=== PATIENT | female | born 2000 | race Two or more races ===

== ENCOUNTER 2024-10-17 19:12 | Emergency (ER) | payer MEDICAID, SELFPAY ==
[2024-10-17 19:12] VITALS: BMI 33.2
--- NOTE | 2024-10-17 19:15 | EKG_ITS ---
[facility] Test Date: 2024-10-17 Pat Name: PIERRE BRUCE Department: Room: - Gender: Female Mobile Phone Salesperson: : [id number] Requested By: Yamil Loza Order Number: [id number] Reading MD: Yamil Loza Measurements Intervals [place] Rate: 88 P: 51 UT: 132 QRS: 51 QRSD: 100 T: 31 QT: 356 QTc: 431 Interpretive Statements SINUS RHYTHM INDETERMINATE AXIS ATYPICAL ECG No previous ECG available for comparison /store/S0/[id number].pdf
[2024-10-17 19:24] VITALS: BP 146/92; PULSE 94; RESP 18; TEMP 36.9; O2SAT 99
--- NOTE | 2024-10-17 19:38 | PD.EDRME ---
Rapid Medical Screening Exam [facility] Arrival date/time: 10/17/24 19:12 24F with history of SHELBI 2/2 to heavy menstrual cycles presents to ED with 2 days of weakness and dizziness. Patient tried iron supplements but they hurt her stomach so she switched to the gummy version. Patient's current cycle has been going on for about 1 month. Chief Complaint: Dizziness Time Seen by Provider: 10/17/24 23:33 Vital signs: Vital Signs Temperature 98.4 F 10/17/24 19:24 Pulse Rate 94 10/17/24 19:24 Respiratory Rate 18 10/17/24 19:24 Blood Pressure 146/92 H 10/17/24 19:24 Pulse Oximetry (%) 99 10/17/24 19:24 Oxygen Delivery Method Room Air 10/17/24 19:24
[2024-10-17 20:16] LABS: Basophils # (Auto) 0.1 Thou/mm3 (0.0-0.2); Basophils % (Auto) 1 % (0-2.5); Eosinophils # (Auto) 0.1 Thou/mm3 (0.0-0.5); Eosinophils % (Auto) 1 % (0-10); Hematocrit 35.2 % (36.0-46.0); Hemoglobin 10.9 g/dL (12.0-16.0); Immature Granulocytes % (Auto) 1 % (0-0); Immature Granulocytes Auto 0.08 Thou/mm3 (0.00-0.00); Lymphocytes # (Auto) 3.2 Thou/mm3 (1.0-4.8); Lymphocytes % (Auto) 25 % (10-50); Mean Corpuscular Hemoglobin 23.8 pg (25.0-35.0); Mean Corpuscular Volume 77 fL (80-100); Monocytes # (Auto) 0.8 Thou/mm3 (0.0-0.8); Monocytes % (Auto) 6 % (0-12); Neutrophils # (Auto) 8.5 Thou/mm3 (1.8-7.7); Neutrophils % (Auto) 67 % (37-80); Nucleated Red Blood Cell % 0 /100 WBC (0); Platelet Count 531 Thou/mm3 (140-440); Red Blood Count 4.58 Miln/mm3 (4.00-5.20); White Blood Count 12.7 Thou/mm3 (3.6-11.0)
[2024-10-17 20:36] LABS: Alanine Aminotransferase 11 U/L (10-49); Albumin, Serum 4.8 gm/dL (3.5-5.0); Albumin/Globulin Ratio 1.5 (1.2-2.2); Alkaline Phosphatase 82 U/L (46-116); Anion Gap 5 (7-16); Aspartate Amino Transferase 17 U/L (0-34); BUN/Creatinine Ratio 10 Ratio (12-20); Bilirubin,Total 0.4 mg/dL (0.3-1.2); Blood Urea Nitrogen 10 mg/dL (9-23); Calcium 9.8 mg/dL (8.3-10.6); Calcium (Corrected) 9.8 mg/dL (8.5-10.1); Carbon Dioxide 28.1 mMol/L (20.0-31.0); Chloride 104 mMol/L (98-107); Estimated Creatinine Clearance 79.6 mL/min (>60); Globulin 3.1 gm/dL (2.3-3.5); Glucose 88 mg/dL (74-106); Osmolality,Calculated 271 (275-295); Potassium 3.7 mMol/L (3.4-5.1); Sodium 137 mMol/L (136-145); Total Protein 7.9 gm/dL (5.7-8.2); eGFR > 60 See Note
[2024-10-17 20:46] LABS: Collection Type, Urine Clean Catch
[2024-10-17 21:02] LABS: Amphetamine/Methamp Scrn,U Negative (Negative); Barbiturate Screen,Urine Negative (Negative); Benzodiazepines Screen,Urine Negative (Negative); Benzoylecgonine Screen, Ur Negative (Negative); Fentanyl Screen,Urine Negative (Negative); Opiate Screen,Urine Negative (Negative); THC Screen,Urine Negative (Negative)
[2024-10-17 21:06] LABS: Bilirubin,Urine Negative (Negative); Blood,Urine 3+ (Negative); Glucose, Urine Negative (Negative); HCG Qualitative,Urine Negative; Ketones,Urine Trace (Negative); Leukocyte Esterase,Urine Positive (Negative); Nitrite,Urine Negative (Negative); PH,Urine 6.5 (5.0-7.0); Protein,Urine 1+ (Neg - Trace); RBC,Urine 5458 /hpf (0-3); Specific Gravity,Urine 1.031 (1.001-1.035); Squamous Epithelial Cell,Urine 3 /hpf (0-5); WBC,Urine 63 /hpf (0-5)
[2024-10-17 21:07] LABS: Clarity,Urine Turbid (Clear/Hazy); Color,Urine Lt Orange (Lt Yel-Yel)
--- NOTE | 2024-10-17 23:33 | EDNOTE_ITS ---
ED Dizzyness RME/HPI General Chief Complaint: Dizziness Stated Complaint: DIZZINESS AND LIGHTHEADED X 2DAYS Time Seen by Provider: 10/17/24 23:33 Arrival date/time: 10/17/24 19:12 24F with history of SHELBI 2/2 to heavy menstrual cycles presents to ED with 2 days of weakness and dizziness. Patient tried iron supplements but they hurt her stomach so she switched to the gummy version. Patient's current cycle has been going on for about 1 month. Limitations: no limitations Related Data Previous Rx's ?Medication ?Instructions ?Recorded ibuprofen 800 mg tablet 800 mg PO Q6H PRN pain #10 tabs 01/05/23 ibuprofen 800 mg tablet 800 mg PO TID PRN pain #30 tabs 02/09/23 Allergies Allergy/AdvReac Type Severity Reaction Status Date / Time No Known Allergies Allergy Verified 03/30/22 23:14 Review of Systems Review of Systems Systems Reviewed: All systems reviewed, normal except as documented Constitutional Constitutional: Reports system reviewed and no additional complaints, except as documented, Reports as per HPI, Reports fatigue, Denies fever(s) and Denies headache(s) ENT Ears, Nose, Mouth, and Throat: Reports as per HPI, Denies disequilibrium, Denies headache(s) and Reports vertigo Cardiovascular Cardiovascular: Reports system reviewed and no additional complaints, except as documented, Denies chest pain and Denies dyspnea Respiratory Respiratory: Reports system reviewed and no additional complaints, except as documented, Denies cough and Denies dyspnea Gastrointestinal Gastrointestinal: Reports system reviewed and no additional complaints, except as documented, Denies abdominal pain, Denies nausea and Denies vomiting Neurologic Neurologic: Reports system reviewed and no additional complaints, except as documented, Denies confusion, Denies disequilibrium, Denies headache(s) and Reports vertigo Psychiatric Psychiatric: Denies confusion Endocrine Endocrine: Reports fatigue Past Medical History Past Medical History CARDIAC: Negative Congestive Heart Failure RESPIRATORY: Positive Asthma; Negative Chronic Obstructive Pulmonary Disease (COPD) GENITOURINARY: Negative Renal Disease ENDOCRINE: Negative Diabetes Mellitus Type 1 or Diabetes Mellitus Type 2 Social History SMOKING STATUS: Never smoker ED Exam General Limitations: Present no limitations General appearance: Present alert and in no apparent distress Head Head exam: Present atraumatic Eye Eye exam: Present normal appearance, PERRL and EOMI ENT ENT exam: Present normal exam, normal oropharynx and mucous membranes moist Neck Neck exam: Present normal inspection, full ROM and trachea midline Chest Chest inspection: Present normal inspection and symmetric chest wall rise Respiratory Respiratory exam: Present normal lung sounds bilaterally Cardiovascular Cardiovascular exam: Present regular rate, normal rhythm and normal heart sounds Abdominal Exam Abdominal exam: Present soft and normal bowel sounds Extremities Exam Extremities exam: Present normal inspection and full ROM Back Exam Back exam: Present normal inspection and full ROM Neurological Exam Neurological exam: Present alert, oriented X3 and CN II-XII intact Psychiatric Psychiatric exam: Present normal affect and normal mood Skin Skin exam: Present warm, dry, intact and normal color Course Quality Measures none Orders Category Date Time Status EKG (ED ONLY) *Do not use* NOW Care 10/17/24 19:15 Completed EKG (ED Only) Stat Exams 10/17/24 19:15 Draft CBC Stat Lab 10/17/24 19:53 Completed CMP [Comprehensive Metabolic Panel] Stat Lab 10/17/24 19:53 Completed Drug Screen,Urine Stat Lab 10/17/24 20:40 Completed HCG Qualitative,Urine Stat Lab 10/17/24 20:40 Completed Urinalysis Stat Lab 10/17/24 20:40 Completed Vital Signs Vital signs: Vital Signs Temperature 98.4 F 10/17/24 19:24 Pulse Rate 94 10/17/24 19:24 Respiratory Rate 18 10/17/24 19:24 Blood Pressure 146/92 H 10/17/24 19:24 Pulse Oximetry (%) 99 10/17/24 19:24 Oxygen Delivery Method Room Air 10/17/24 19:24 O2 at 99% on RA and WNLs Dizziness MDM Narrative MDM Narrative:: 24F with history of SHELBI 2/2 to heavy menstrual cycles presents to ED with 2 days of weakness and dizziness. Patient tried iron supplements but they hurt her stomach so she switched to the gummy version. Patient's current cycle has been going on for about 1 month. Physical exam reveals clear ENT and lungs. Normal pupil response and EOM. No ab tenderness. Patient is afebrile, calm, and alert. UA lots of RBCs with some WBCs, but patient denies dysuria so will not treat as UTI. HCG neg. Mild leukocytosis, but mild anemia. CMP unremarkable. EKG is NSR. Given residential counselor to follow-up with OBGYN. Patient data External records reviewed:: [facility] previous records Clinical information provided by:: patient Social determinants that could affect healthcare access:: none Patient has the following chronic illnesses:: none How is presenting disease/condition affected by chronic disease/condition?: no chronic disease Evaluation data The following diagnostics were reviewed and interpreted by me:: lab results and EKG tracing(s) Lab and/or radiology exams considered but not ordered:: ordered Interpretation Summary: above Medications / Prescriptions Medications or Prescriptions considered but not ordered:: not ordered Medication administrations:: n/a Consultations Consultation(s) initiated? (list below): No Diagnosis Dizziness Differential Diagnosis: adverse reaction to drug, benign paroxysmal positional vertigo, orthostatic hypotension, vertebral basilar insufficiency, cerebrovascular accident, acute vestibular neuronitis, transient cerebral ischemia and other (anemia) Most likely diagnosis given after review of the tests above:: anemia Admission Indicated Admission indicated?: not indicated Admission Request Was there a request for admission?: No Disposition Plan Disposition Plan: Discharge Discharge Attestation Discharge Attestation: The patient and all family members were given an opportunity to ask questions and understood the discharge instructions. Discharge instructions specifically effects, indications for sooner follow up or return to the emergency department, and the expected course of current diagnosis. Patient condition: Stable Discharge Plan Plan Patient Disposition: HOME (Self Care) Disposition Comment: STable Prescriptions/Referrals Prescriptions/Med Rec: No Action ibuprofen 800 mg tablet 800 mg PO Q6H PRN (Reason: pain) Qty: 10 0RF ibuprofen 800 mg tablet 800 mg PO TID PRN (Reason: pain) Qty: 30 0RF Referrals: Nam Stallworth MD [Primary Care Provider] - In 1 week Problem List Clinical Impression: Anemia, Vaginal bleeding Patient/Caregiver Discharge Instructions Additional Instructions: Please follow-up with PCP/OBGYN within 24-48 hours and return immediately if symptoms worsen. Print Language: Faroese Stand Alone Forms: Patient Portal Info Letter GABRIELA/RADHA Supervising Physician SHANAE Supervising Physician: Dr. Hightower
[2024-10-17 23:48] VITALS: BP 132/76; PULSE 88; RESP 18; TEMP 36.7; O2SAT 99
== END 2024-10-17 23:49 | disposition home or self-care (01) ==
PROVIDERS: Physician Assistant; Emergency Provider Emergency Medicine; PCP Internal Medicine
DX: D64.9 Anemia, unspecified (principal); N93.9 Abnormal uterine and vaginal bleeding, unspecified
CPT/HCPCS: 36415; 80053; 80307; 81001; 81025; 85025; 93005; 99283

== ENCOUNTER 2025-04-23 21:25 | Emergency (ER) | payer MEDICAID, SELFPAY ==
[2025-04-23 21:26] VITALS: BMI 35.2
[2025-04-23 22:22] VITALS: BP 138/87; PULSE 80; RESP 19; TEMP 36.6; O2SAT 99
--- NOTE | 2025-04-23 23:50 | EDNOTE_ITS ---
ED Eye Problem RME/HPI General Chief complaint: Eye Problems Stated complaint: GREEN DISCHARGE ON RT EYE X 3DAYS Time Seen by Provider: 04/23/25 23:25 Source: patient Arrival date/time: 04/23/25 21:25 Mode of arrival: ambulatory Limitations: no limitations RME / HPI RME / HPI Narrative: 24-year-old female presents to the ED with a complaint of itchiness to the right eye that began 3 days ago progressively becoming worse. Patient denies jose pain and she denies using contact lenses chief complaint: eye pain and eye redness Onset (ago): day(s) (3) Onset description: gradual Duration: constant Location: right eye Eye Symptoms: burning, redness, itching and discharge (Honey colored discharge, worse in the morning.) Place: home Mechanism: none Severity: moderate If Pain, Quality: sharp and burning Context: recent URI (Denies) Associated symptoms: none Related Data Previous Rx's ?Medication ?Instructions ?Recorded ibuprofen 800 mg tablet 800 mg PO Q6H PRN pain #10 t abs 01/05/23 ibuprofen 800 mg tablet 800 mg PO TID PRN pain #30 t abs 02/09/23 sulfacetamide sodium 10 % eye drops 2 drp ophthalmic ( eye) Q4H #15 mL 04/24/25 Allergies Allergy/AdvReac Type Severity Reaction Status Date / Time No Known Allergies Allergy Verified 03/30/22 23:14 Review of Systems Constitutional Constitutional: Reports system reviewed and no additional complaints, except as documented Eyes Eyes: Reports system reviewed and no additional complaints, except as documented, Denies dry eyes, Denies exophthalmos and Reports floaters Cardiovascular Cardiovascular: Denies chest pain with activity and Denies claudication ED Exam Narrative Physical exam: The right eye is positive for injected conjunctiva. There is no discharge present. EOMs are intact and the patient has PERRL General Limitations: Present no limitations General appearance: Present alert and in no apparent distress Head Head exam: Present atraumatic Eye Eye exam: Present PERRL, EOMI and conjunctival injection (Right eye) ENT ENT exam: Present normal exam, normal oropharynx and mucous membranes moist Neck Neck exam: Present normal inspection, full ROM and trachea midline Chest Chest inspection: Present normal inspection and symmetric chest wall rise Extremities Exam Extremities exam: Present normal inspection and full ROM Back Exam Back exam: Present normal inspection and full ROM Neurological Exam Neurological exam: Present alert and oriented X3 Psychiatric Psychiatric exam: Present normal affect and normal mood Skin Skin exam: Present warm, dry, intact and normal color Course Course Course Narrative: Patient will have a course of Bleph-10 sent to the pharmacy of her choice. Quality Measures none Vital Signs Vital signs: Vital Signs Temperature 97.9 F 04/23/25 22:22 Pulse Rate 80 04/23/25 22:22 Respiratory Rate 19 04/23/25 22:22 Blood Pressure 138/87 H 04/23/25 22:22 Pulse Oximetry (%) 99 04/23/25 22:22 Oxygen Delivery Method Room Air 04/23/25 22:22 Pulse ox room air 99% Eye Patient data External records reviewed:: Other (specify) Clinical information provided by:: none Social determinants that could affect healthcare access:: none Patient has the following chronic illnesses:: No chronic illnesses How is presenting disease/condition affected by chronic disease/condition?: no chronic disease Evaluation data The following diagnostics were reviewed and interpreted by me:: other (specify) Lab and/or radiology exams considered but not ordered:: N/A Interpretation Summary: N/A Medications / Prescriptions Medications or Prescriptions considered but not ordered:: N/A Medication administrations:: N/A Consultations Consultation(s) initiated? (list below): No Diagnosis Eye Problem Differential Diagnosis: corneal abrasion, conjunctivitis, acute iritis, hyphema and glaucoma Most likely diagnosis given after review of the tests above:: N/A Admission Indicated Admission indicated?: not indicated Admission Request Was there a request for admission?: No Disposition Plan Disposition Plan: Discharge Discharge Attestation Discharge Attestation: The patient and all family members were given an opportunity to ask questions and understood the discharge instructions. Discharge instructions specifically effects, indications for sooner follow up or return to the emergency department, and the expected course of current diagnosis. Patient condition: Stable Discharge Plan Plan Patient Disposition: HOME (Self Care) Discharge Disposition comment: Discharge in no apparent distress Patient condition on transfer: Stable Prescriptions/Referrals Prescriptions/Med Rec: New sulfacetamide sodium 10 % drops 2 drp ophthalmic (eye) Q4H Qty: 15 0RF No Action ibuprofen 800 mg tablet 800 mg PO Q6H PRN (Reason: pain) Qty: 10 0RF ibuprofen 800 mg tablet 800 mg PO TID PRN (Reason: pain) Qty: 30 0RF Referrals: Kacey Stallworth MD [Primary Care Provider] - In 1 week Problem List Clinical Impression: Conjunctivitis Patient/Caregiver Discharge Instructions Education Materials: ED Conjunctivitis, Nonspecific Print Language: Liberian Stand Alone Forms: Danii Award Info., Work/School Release, Patient Portal Info Letter PA/VIDEO GAMES MECHANIC Supervising Physician PA/VIDEO GAMES MECHANIC Supervising Physician: Marisela
[2025-04-24 00:22] VITALS: BP 126/76; PULSE 72; RESP 18; TEMP 36.8; O2SAT 98
== END 2025-04-24 00:23 | disposition home or self-care (01) ==
PROVIDERS: Emergency Provider Emergency Medicine; PCP Internal Medicine
DX: H10.9 Unspecified conjunctivitis (principal)
CPT/HCPCS: 99281